=== PATIENT | female | born 1985 | race Caucasian/White ===

== ENCOUNTER 2017-04-17 18:21 | Emergency (ER) | payer BC ==
--- NOTE | 2017-04-17 19:00 | UC ---
UC General HPI - HPI Summary HPI Summary: patient has no complaints today she missed 3 unexcused days from work and is requiring a work note to return. Patient reports no c/o today - History of Current Complaint Chief Complaint: UCGeneralIllness Stated Complaint: WORK NOTE Time Seen by Provider: 04/17/17 18:33 Hx Obtained From: Patient Hx Last Menstrual Period: has IUD Current Severity: None - Allergy/Home Medications Allergies/Adverse Reactions: Allergies Allergy/AdvReac Type Severity Reaction Status Date / Time No Known Allergies Allergy Verified 04/17/17 18:47 PMH/Surg Hx/FS Hx/Imm Hx Psychological History: Depression - Surgical History Surgical History: Yes Surgery Procedure, Year, and Place: d&c, WISDOM TEETH - Family History Known Family History: Positive: Hypertension, Diabetes - father - Social History Occupation: Employed Full-time Lives: With Family Alcohol Use: Occasionally Substance Use Type: None Smoking Status (MU): Light Every Day Tobacco Smoker Type: Cigarettes Amount Used/How Often: 1/2 PPD Length of Time of Smoking/Using Tobacco: 13 yrs Have You Smoked in the Last Year: Yes Household Exposure Type: Cigarettes Cessation Counseling: Counseled 3+Min - 10 Min - Immunization History Most Recent Influenza Vaccination: none Review of Systems Constitutional: Negative Skin: Negative Eyes: Negative ENT: Negative Respiratory: Negative Cardiovascular: Negative Gastrointestinal: Negative Genitourinary: Negative Motor: Negative Neurovascular: Negative Musculoskeletal: Negative Neurological: Negative Psychological: Negative Is Patient Immunocompromised?: No All Other Systems Reviewed And Are Negative: Yes Physical Exam Triage Information Reviewed: Yes Appearance: Well-Appearing, No Pain Distress, Well-Nourished Vital Signs: Initial Vital Signs Pulse 64 04/17/17 18:42 Resp 15 04/17/17 18:42 BP 112/76 04/17/17 18:42 Pulse Ox 100 04/17/17 18:42 Vital Signs Reviewed: Yes Eye Exam: Normal Eyes: Positive: Conjunctiva Clear ENT Exam: Normal ENT: Positive: Normal ENT inspection, Hearing grossly normal. Negative: Nasal congestion, Trismus, Muffled voice, Hoarse voice Dental Exam: Normal Neck exam: Normal Neck: Positive: Supple, Nontender Respiratory Exam: Normal Respiratory: Positive: No respiratory distress, No accessory muscle use Cardiovascular Exam: Normal Cardiovascular: Positive: Pulses Normal, Brisk Capillary Refill Musculoskeletal Exam: Normal Musculoskeletal: Positive: Strength Intact, ROM Intact, No Edema Neurological Exam: Normal Neurological: Positive: Alert, Muscle Tone Normal Psychological Exam: Normal Psychological: Positive: Normal Response To Family Skin Exam: Normal Course/Dx - Course Course Of Treatment: may return to work based on patient report of no c/o, nicotine cesasstion information - Differential Dx - Multi-Symptom Provider Diagnoses: Nicotine dependent, health evaluation Discharge - Discharge Plan Condition: Stable Disposition: HOME Patient Education Materials: How to Stop Smoking (ED) Forms: *Work Release Referrals: Mario Alberto Christy NP [Primary Care Provider] - If Needed
[2017-04-17 19:17] VITALS: BP 112/76
== END 2017-04-17 19:14 | disposition home or self-care (01) ==
LOC: UCCORT 18:21
DX: Z00.8 Encounter for other general examination (principal); F17.210 Nicotine dependence, cigarettes, uncomplicated; Z97.5 Presence of (intrauterine) contraceptive device
CPT/HCPCS: 99211; G0463

== ENCOUNTER 2017-09-19 09:06 | Emergency (ER) | payer BC ==
--- OUTSIDE RECORDS SUMMARY | 2017-09-19 09:30 | XMS REPORT ---
:1985 External Reference #:[id number] Author Organization [facility] Address [address], [address] [place] [address] Phone [phone] Care Team Providers Name Role Phone Mario Alberto Christy, BOUCHRA Care Team Information Collector Of Aqu[employer] Unavailable Mario Alberto Christy, FOREIGN EXCHANGE TRADER Primary Care Physician Unavailable Payers Type Date Identification Numbers Payment Provider Subscriber Commercial Policy Number: [id number] Susanna Fair PayID: [id number] [address] [address] [place] [address] Problems Description No Information Family History Date Family Member(s) Problem(s) Comments Father Diabetes Mother Arthritis First Sister Primary Pulmonary Hypertension Social History Type Date Description Comments Lives With Philip Fair 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 Cigarette Use currently smokes 1/2 Pack Daily Cigars Never Smoked Cigars Pipe Never Smoked A Pipe Smokeless Tobacco Never Used Smokeless Tobacco ETOH Use Currently consumes alcohol socially Recreational Drug Use Denies Drug Use Smoking Heavy tobacco smoker (more than 10 cigarettes/day) Daily Caffeine Current Caffeine User Daily Allergies, Adverse Reactions, Alerts Date Description Reaction Status Severity Comments 08/23/2017 NKDA active Medications Medication Date Status Form Strength Qnty SIG Indications Ordering Provider Meloxicam Active Tablets 15mg 30tabs 1 by mouth M67.833 Linda 018 every day MD Tamir Lorazepam 0 Active Tablets 1mg 1 mg by Unknown 000 mouth every 8 hours as needed anxiety Bupropion HCL 0 Active Tablets 75mg 1 by mouth Unknown 000 twice a day Sertraline HCL 0 Active Tablets 25mg 1 by mouth Unknown 000 every day Vital Signs Date Vital Result Comment 08/23/2017 BP Systolic Sitting Right Arm 108 mmHg BP Diastolic Sitting Right Arm 76 mmHg Heart Rate 77 /min Respiratory Rate 18 /min Height 62 inches 5'2" [place] body weight in kilograms 50 Results Description No Information Procedures Date CPT Code Description Status 12/18/2011 08349 Anesthesia Incomplete Or Missed Procedures Completed Encounters Type Date Location Provider CPT E/M Dx Office Visit 08/23/2017 3:15p [facility]HELLE Yang [id number] M67.833 Plan of Care Future Appointment(s):09/25/2017 11:30 am - MICHELLE Yang at [id number]/23/2017 - Irma Childress [id number] Other specified disorders of tendon , right wristNew Medication:Meloxicam 15 mgNew Therapy:Physical/Occupational TherapyComments:I recommended rest, ice, anti-inflammatories and physical therapy. Wrist brace was provided. I explained that if the middle finger seems to be isolated and is more like a trigger finger than an injection could be performed, but there is no catching today and we will hold off on a steroid injection at this time. Patient will continue to work as tolerated. Plan rechecking her back in 3-4 weeks. I've also switch her anti-inflammatory to Meloxicam.AllFollow up:3-4 wk
[2017-09-19 09:36] VITALS: BP 105/67
--- NOTE | 2017-09-19 10:26 | UC ---
Throat Pain/Nasal Mikhail HPI - HPI Summary HPI Summary: PATIENT PRESENTS WITH 3 DAYS OF NECK PAIN. HAD ST AT ONSET THAT IS NOW RESOLVED. ALSO C/O LEFT EAR PAIN. NO HEARING LOSS OR DRAINAGE FROM THE EAR. NO FEVER, NAUSEA/VOMITING. - History of Current Complaint Chief Complaint: UCGeneralIllness Stated Complaint: SORE THROAT STIFF NECK/BACK EARS Time Seen by Provider: 09/19/17 09:55 Hx Obtained From: Patient Hx Last Menstrual Period: unknown, mirena IUD Onset/Duration: Gradual Onset, Lasting Days, Still Present Severity: Moderate Pain Intensity: 4 Pain Scale Used: 0-10 Numeric Associated Signs & Symptoms: Negative: Wheezing, Fever - Allergies/Home Medications Allergies/Adverse Reactions: Allergies Allergy/AdvReac Type Severity Reaction Status Date / Time No Known Allergies Allergy Verified 09/19/17 09:32 PMH/Surg Hx/FS Hx/Imm Hx Psychological History: Anxiety - Surgical History Surgical History: Yes Surgery Procedure, Year, and Place: d&c, WISDOM TEETH - Family History Known Family History: Positive: Hypertension, Diabetes - father - Social History Alcohol Use: Occasionally Substance Use Type: None Smoking Status (MU): Light Every Day Tobacco Smoker Type: Cigarettes Amount Used/How Often: 1/2 PPD Length of Time of Smoking/Using Tobacco: 13 yrs Have You Smoked in the Last Year: Yes Household Exposure Type: Cigarettes - Immunization History Most Recent Influenza Vaccination: none Review of Systems Constitutional: Negative ENT: Sore Throat, Ear Ache, Nasal Discharge Respiratory: Cough Cardiovascular: Negative Gastrointestinal: Negative Musculoskeletal: Myalgia All Other Systems Reviewed And Are Negative: Yes Physical Exam Triage Information Reviewed: Yes Appearance: Well-Appearing, No Pain Distress, Well-Nourished Vital Signs: Initial Vital Signs Temp 98.4 F 09/19/17 09:28 Pulse 77 09/19/17 09:28 Resp 16 09/19/17 09:28 BP 105/67 09/19/17 09:28 Pulse Ox 99 09/19/17 09:28 Vital Signs Reviewed: Yes Eyes: Positive: Conjunctiva Clear ENT: Positive: Hearing grossly normal, Pharynx normal, TMs normal Neck: Positive: Supple, Nontender, No Lymphadenopathy Respiratory Exam: Normal Cardiovascular Exam: Normal Abdomen Description: Positive: Soft Musculoskeletal: Positive: No Edema Neurological: Positive: Alert, Other: - NO SIGNS OF MENINGISMUS Psychological: Positive: Age Appropriate Behavior Skin: Negative: rashes Throat Pain/Nasal Course/Dx - Differential Dx/Diagnosis Provider Diagnoses: VIRAL SYNDROME Discharge - Sign-Out/Discharge Documenting (check all that apply): Discharge/Admit/Transfer - Discharge Plan Condition: Stable Disposition: HOME Prescriptions: Naproxen [Naproxen EC] 500 mg PO BID PRN #30 tab PRN Reason: Pain Patient Education Materials: Viral Syndrome (ED) Forms: *Work Release Referrals: Mario Alberto Christy NP [Primary Care Provider] - If Needed Additional Instructions: YOUR SYMPTOMS ARE LIKELY VIRALLY MEDIATED AND SHOULD RESOLVE ON THEIR OWN WITH TIME. NO INDICATION FOR ANTIBIOTICS AT PRESENT. REST, HYDRATE, OTC MEDS NEEDED. SEEK FOLLOW-UP IF YOU ARE NOT IMPROVING OVER THE NEXT 1-2 WEEKS. - Billing Disposition and Condition Condition: STABLE Disposition: HOME
== END 2017-09-19 10:27 | disposition home or self-care (01) ==
LOC: UCCORT 09:06
DX: B34.9 Viral infection, unspecified (principal); F17.210 Nicotine dependence, cigarettes, uncomplicated
CPT/HCPCS: 99212; G0463